=== PATIENT | male | born 1955 | race Caucasian/White ===

== ENCOUNTER 2019-07-23 11:48 | Emergency (ER) | payer MEDICARE ==
[2019-09-10 15:07] VITALS: BMI 23.2
== END 2019-07-23 14:02 | disposition left against medical advice (07) ==
LOC: D.ER 11:48
DX: M79.643 Pain in unspecified hand (principal)

== ENCOUNTER 2019-07-30 03:26 | Emergency (ER) | payer MEDICARE ==
[~2019-07-30] VITALS: Ht 177.8 cm; Wt 74.5 kg
[2019-07-30 03:30] VITALS: Ht 177.8 cm; Wt 74.5 kg
[2019-07-30] MEDS ORDERED: PRINIVIL10 MG PO (03:31)
[2019-07-30] MEDS ORDERED: MUCINEX600 MG (03:31)
[2019-07-30] MEDS ORDERED: MUCINEX600 MG PO (03:31)
[2019-07-30 04:02] LABS: BASOPHILS 0.6 % (0-2); EOSINOPHILS 1.9 % (0-7); HEMATOCRIT 38.8 % (42.0-54.0); HEMOGLOBIN 13.1 g/dL (13.5-17.5); IMMATURE GRANULOCYTES 0.1 % (0-5); LYMPHOCYTES 17.2 % (15-50); MCH 30.8 pg (26.0-34.0); MCHC 33.8 g/dL (31.0-37.0); MCV 91.3 fL (80.0-100.0); MEAN PLATELET VOLUME 10.4 fL (7.4-10.4); MONOCYTES 8.7 % (2-11); NEUTROPHILS 71.5 % (40-80); PLATELET COUNT 232 10x3/uL (130-400); RBC 4.25 10x6/uL (4.20-6.10); RDW 14.1 % (11.5-14.5); WBC 10.4 10x3/uL (4.8-10.8)
[2019-07-30 04:09] LABS: CALC OSMOLALITY 279 mosm/kg (275-300); CALCIUM 8.7 mg/dL (8.5-10.1); CARBON DIOXIDE 26.8 mmol/L (21.0-32.0); CHLORIDE - SERUM 104 mmol/L (98-107); CREATININE - SERUM 0.7 mg/dL (0.6-1.3); GLUCOSE 155 mg/dL (74-106); POTASSIUM - SERUM 4.2 mmol/L (3.5-5.1); SODIUM 137 mmol/L (136-145); UREA NITROGEN 22 mg/dL (7-18); eGFR NON AFRICAN AMERICAN > 90 mL/min (90-120)
[2019-07-30 04:26] LABS: APTT 30.7 SECONDS (22.8-39.4); INR 0.97 (0.85-1.17); PROTIME 12.4 SECONDS (11.6-15.0)
[2019-07-30 04:27] LABS: ALBUMIN 3.9 g/dL (3.4-5.0); ALKALINE PHOSPHATASE 64 U/L (46-116); ALT (SGPT) 27 U/L (10-68); BILIRUBIN - TOTAL 0.19 mg/dL (0.2-1.3); CKMB 1.6 U/L (0.0-3.6); CREATINE KINASE 109 UL (21-232); PRO BNP 90 pg/mL (0-125); PROTEIN - SERUM 7.5 g/dL (6.4-8.2); TROPONIN-I < 0.017 ng/mL (0.000-0.060)
[2019-07-30] MEDS ORDERED: CYCLOBENZAPRINE10 MG PO (04:46)
[2019-07-30] MEDS ORDERED: MEDROL DOSE PACK4 MG PO (04:46)
[2019-07-30] MEDS ORDERED: ACETAMINOPHEN500 M1 PO (04:46)
[2019-07-30] MEDS ORDERED: ZPAK PO (04:46)
[2019-07-30] MEDS ORDERED: ALBUTEROL SULF8.5 GM INH (04:47)
[2019-07-30 04:55] VITALS: BP 177/70
== END 2019-07-30 04:56 | disposition home or self-care (01) ==
LOC: D.ER 03:26
PROVIDERS: Family Medicine
DX: J20.9 Acute bronchitis, unspecified (principal); R07.9 Chest pain, unspecified; S20.219A Contusion of unspecified front wall of thorax, initial encounter

== ENCOUNTER 2019-09-10 15:02 | Emergency (ER) | payer MEDICARE ==
[~2019-09-10] VITALS: Ht 177.8 cm; Wt 73.6 kg
[~2019-09-10 15:02] MED LIST: ACETAMINOPHEN500 M1 PO; ALBUTEROL SULF8.5 GM INH; CYCLOBENZAPRINE10 MG PO; MEDROL DOSE PACK4 MG PO; MUCINEX600 MG; MUCINEX600 MG PO; PRINIVIL10 MG PO; ZPAK PO
[2019-09-10 15:07] VITALS: Ht 177.8 cm; Wt 73.6 kg
[2019-09-10] MEDS ORDERED: XANAX1 MG PO (15:09)
[2019-09-10] MEDS ORDERED: TESSALON PERLE100 MG PO (16:05)
[2019-09-10 16:21] VITALS: BP 146/71
== END 2019-09-10 16:22 | disposition home or self-care (01) ==
LOC: D.ER 15:02
DX: R06.02 Shortness of breath (principal); F41.9 Anxiety disorder, unspecified; J44.9 Chronic obstructive pulmonary disease, unspecified